=== PATIENT | female | born 1970 | race Hispanic/Latino ===

== ENCOUNTER 2016-10-22 21:28 | Emergency (ER) | payer OTHER ==
[~2016-10-22] VITALS: Ht 157.5 cm; Wt 68.9 kg
--- NOTE | 2016-10-22 21:42 | ED GI/GU/ABDOMINAL COMPLAINT ---
History of Present Illness General Chief Complaint: Abdominal Pain/Flank Pain Stated Complaint: R PELVIC PAIN PER PT Source: patient Exam Limitations: no limitations Vital Signs & Intake/Output Vital Signs & Intake/Output Vital Signs Date Time Temp Pulse Resp B/P Pulse O2 O2 Flow FiO2 Ox Delivery Rate 10/224 98.7 85 18 149/87 99 Room Air ED Intake and Output 10/23 0000 10/22 1200 Intake Total 0 Output Total Balance 0 Intake, Oral 0 Patient 152 lb Weight Allergies Coded Allergies: No Known Allergies (10/22/16) Triage Note: PT TO TRIAGE WITH C/O RLQ ABD PAIN ON/OFF FOR 2 WEEKS. US WAS DONE AT THAT TIME THAT SHOW SMALL OVARIAN CYST, PT HAS BEEN ON NAPROXEN SINCE. PT DENIES N/V/D, DENIES URINARY S/S. MD CAROLIN IN TRIAGE FOR PT EVAL. Triage Nurses Notes Reviewed? yes ? n Is pt currently ? No Onset: Gradual Duration: week(s):, waxing and waning Timing: recent history Quality/Severity: cramping Location: right lower quadrant Radiation: no radiation Activities at Onset: none Prior Abdominal Problems: similar symptoms Modifying Factors: Worsens With: palpation. Associated Symptoms: abdominal pain, right lower quadrant tenderness HPI: 46 yo woman with right lower quadrant pain x 2 weeks. She was seen by her clothes model 2 weeks ago, had a negative ultrasound, negative clothes model exam, and presents with continued pain, mild nausea. She has no fever, chills, dysuria, vaginal discharge. She is otherwise well. Past History Travel History Traveled to [place] past 21 day No Medical History Any Pertinent Medical History? see below for history Surgical History Surgical History: uterine ablation Psychosocial History What is your primary language [place] Tobacco Use: Never used ETOH Use: denies use Family History Hx Contributory? No Review of Systems Review of Systems Constitutional: Reports: no symptoms. EENTM: Reports: no symptoms. Respiratory: Reports: no symptoms. Cardiovascular: Reports: no symptoms. GI: Reports: no symptoms. Genitourinary: Reports: no symptoms. Musculoskeletal: Reports: no symptoms. Skin: Reports: no symptoms. Neurological/Psychological: Reports: no symptoms. Hematologic/Endocrine: Reports: no symptoms. Immunologic/Allergic: Reports: no symptoms. All Other Systems: Reviewed and Negative Physical Exam Physical Exam General Appearance: well developed/nourished, no apparent distress Head: atraumatic, normal appearance Eyes: Bilateral: normal appearance. Ears, Nose, Throat, Mouth: hearing grossly normal Neck: normal inspection, supple, full range of motion Respiratory: normal breath sounds, chest non-tender, no respiratory distress Cardiovascular: regular rate/rhythm Gastrointestinal: normal bowel sounds, soft, mild rlq tenderness to palpation. no rebound. no guarding Back: normal inspection Extremities: normal range of motion Neurologic/Psych: no motor/sensory deficits, awake, alert, oriented x 3 Skin: intact, normal color, warm/dry Core Measures ACS in differential dx? No Severe Sepsis Present: No Septic Shock Present: No Progress Differential Diagnosis: appendicitis, biliary colic, bowel obstruction, cholecystitis, diverticulitis Plan of Care: Orders Procedure Date/time Status URINALYSIS 10/22 2130 Complete LIPASE 10/22 2130 Complete HEPATIC FUNCTION PANEL 10/22 2130 Complete HUMAN BETA HCG SCREEN 10/22 2130 Complete CBC WITHOUT DIFFERENTIAL 10/22 2130 Complete BASIC METABOLIC PANEL 10/22 2130 Complete AMYLASE 10/22 2130 Complete Current Medications Sig/Manda Start time Last Medication Dose Stop Time Status Admin Ondansetron HCl 4 MG ONCE ONE 10/22 2144 CAN (Zofran) 10/22 2145 Laboratory Tests 10/22/168: Urinalysis MOD H, Urine Color YEL, Urine Clarity CLEAR, Urine pH 7.0, Ur Specific [place] 1.020, Urine Protein NEG, Urine Ketones NEG, Urine Nitrite NEG, Urine Bilirubin NEG, Urine Urobilinogen 0.2, Ur Leukocyte Esterase TRACE H, Ur Microscopic SEDIMENT EXAMINED, Urine RBC 1-3, Urine WBC 5-10 H, Ur Epithelial Cells MOD H, Urine Mucus FEW, Urine Hemoglobin NEG, Urine Glucose NEG 10/22/16 2217: Anion Gap 13, Estimated GFR > 60, BUN/Creatinine Ratio 16.7, Glucose 85, Calcium 9.6, Total Bilirubin 0.4, Direct Bilirubin 0.4, AST 20, ALT 14, Alkaline Phosphatase 67, Total Protein 7.7, Albumin 4.2, Amylase 56, Lipase 97, Total Beta HCG NEGATIVE, CBC w Diff NO MAN DIFF REQ, RBC 4.53, MCV 85.2, MCH 28.8, RDW 13.2, MPV 7.8, Gran % 63.8, Lymphocytes % 27.6, Monocytes % 6.8, Eosinophils % 1.3, Basophils % 0.5, Absolute Granulocytes 6.9 H, Absolute Lymphocytes 3.0, Absolute Monocytes 0.7 H, Absolute Eosinophils 0.1, Absolute Basophils 0.1, PUBS MCHC 33.8 Diagnostic Imaging: Viewed by Me: CT Scan. Discussed w/RAD: CT Scan. Radiology Impression: abd/pelvic... consider right ovarian cyst... full report below Initial ED EKG: none Comments: PATIENT: DWIGHT ENCISO PRESENT AGE: 46 PATIENT ACCOUNT NO: [id number] : 70 LOCATION: ER ORDERING PHYSICIAN: SHARON COE MD SERVICE DATE: 10/22/16 EXAM TYPE: CAT - CT ABD & PELVIS W/O IV CONTRAS EXAMINATION: CT ABDOMEN AND PELVIS WITHOUT CONTRAST CLINICAL INFORMATION: Right lower quadrant pain. Question appendicitis. COMPARISON: None. TECHNIQUE: Multidetector volumetric imaging was performed from the superior aspect of the liver through the pubic symphysis. Sagittal and coronal reformatted images were obtained on the technologist's workstation. DLP: 271 mGy-cm. FINDINGS: LUNG BASES: The visualized lung bases are unremarkable. LIVER, GALLBLADDER, AND BILIARY TREE: The liver is normal in size, shape, and attenuation. No focal hepatic lesion or biliary ductal dilatation is present. The gallbladder is unremarkable with no evidence of radiopaque gallstones, gallbladder wall thickening, or obvious pericholecystic inflammatory changes. PANCREAS: Unremarkable. SPLEEN: Unremarkable. ADRENAL GLANDS: Unremarkable. KIDNEYS AND URETERS: The kidneys are normal in size, shape, and attenuation. No hydronephrosis, hydroureter, or calculi seen. No perinephric stranding. BLADDER: Unremarkable. GASTROINTESTINAL TRACT: The stomach and small bowel appear unremarkable. No dilated loops of bowel or evidence of obstruction. There is a normal appendix. No colonic wall thickening or inflammatory change. No free air or free fluid. ABDOMINAL WALL: No significant hernia is appreciated. LYMPH NODES: Normal. VASCULAR: Unremarkable. PELVIC VISCERA: The uterus and left adnexa appear unremarkable. The right ovary appears prominent and somewhat hypoattenuating, most suggestive of a cyst. OSSEOUS STRUCTURES: Unremarkable. IMPRESSION: 1. Normal appendix. 2. Prominence of the right ovary which is somewhat hypoattenuating, most suggestive of a cyst. If there is concern for ovarian pathology, consider sonographic evaluation. DICTATED BY: ARLYN VALENCIA MD DATE/TIME DICTATED:10/22/162328 CHEMICAL PROCESS PROJECT ENGINEER:ALONSO DATE/TIME TRANSCRIBED:10/22/162328 CONFIDENTIAL, DO NOT COPY WITHOUT APPROPRIATE AUTHORIZATION. <Electronically signed in Other Vendor System> SIGNED BY: ARLYN VALENCIA MD 10/22 1586 Departure Departure Disposition: HOME OR SELF CARE Condition: Stable Clinical Impression Primary Impression: Abdominal pain Secondary Impressions: Ovarian cyst Departure Forms: Customer Survey General Discharge Information Comments pt has had two pelvic ultrasounds in recent weeks which suggest ovarian cyst, no torsion.... ct scan tonight affirms ovarian cyst. labs benign... pt safe for discharge with follow up by dr. mercedes tomorrow.
[2016-10-22 22:30] LABS: ABSOLUTE BASOPHIL COUNT 0.1 /CUMM (0.0-0.2); ABSOLUTE EOSINOPHIL COUNT 0.1 /CUMM (0.0-0.7); ABSOLUTE GRANULOCYTE CT 6.9 /CUMM (1.4-6.5); ABSOLUTE MONOCYTE COUNT 0.7 /CUMM (0.10-0.60); BASOPHIL % 0.5 % (0.0-2.0); EOSINOPHIL % 1.3 % (0-5); GRANULOCYTE % 63.8 % (42.2-75.2); HEMATOCRIT 38.6 % (37-47); MEAN CORPUSCULAR HGB 28.8 PG (27.0-31.0); MEAN CORPUSCULAR HGB CONC 33.8 G/DL (33.0-37.0); MEAN CORPUSCULAR VOLUME 85.2 FL (81.0-99.0); MEAN PLATELET VOLUME 7.8 FL (7.4-10.4); PLATELET COUNT 322 /CUMM (130-400); RBC DISTRIBUTION WIDTH 13.2 % (11.5-14.5); RED BLOOD CELL CT 4.53 /CUMM (4.20-5.40); WHITE BLOOD CELL COUNT 10.8 /CUMM (4.8-10.8)
--- NOTE | 2016-10-22 23:35 | CT SCAN REPORT ---
EXAMINATION: CT ABDOMEN AND PELVIS WITHOUT CONTRAST CLINICAL INFORMATION: Right lower quadrant pain. Question appendicitis. COMPARISON: None. TECHNIQUE: Multidetector volumetric imaging was performed from the superior aspect of the liver through the pubic symphysis. Sagittal and coronal reformatted images were obtained on the technologist's workstation. DLP: 271 mGy-cm. FINDINGS: LUNG BASES: The visualized lung bases are unremarkable. LIVER, GALLBLADDER, AND BILIARY TREE: The liver is normal in size, shape, and attenuation. No focal hepatic lesion or biliary ductal dilatation is present. The gallbladder is unremarkable with no evidence of radiopaque gallstones, gallbladder wall thickening, or obvious pericholecystic inflammatory changes. PANCREAS: Unremarkable. SPLEEN: Unremarkable. ADRENAL GLANDS: Unremarkable. KIDNEYS AND URETERS: The kidneys are normal in size, shape, and attenuation. No hydronephrosis, hydroureter, or calculi seen. No perinephric stranding. BLADDER: Unremarkable. GASTROINTESTINAL TRACT: The stomach and small bowel appear unremarkable. No dilated loops of bowel or evidence of obstruction. There is a normal appendix. No colonic wall thickening or inflammatory change. No free air or free fluid. ABDOMINAL WALL: No significant hernia is appreciated. LYMPH NODES: Normal. VASCULAR: Unremarkable. PELVIC VISCERA: The uterus and left adnexa appear unremarkable. The right ovary appears prominent and somewhat hypoattenuating, most suggestive of a cyst. OSSEOUS STRUCTURES: Unremarkable. IMPRESSION: 1. Normal appendix. 2. Prominence of the right ovary which is somewhat hypoattenuating, most suggestive of a cyst. If there is concern for ovarian pathology, consider sonographic evaluation.
[2016-10-23] MEDS ORDERED: IBUPROFEN800 M1 PO (00:10)
[2016-10-23] MEDS ORDERED: ULTRAM50 M1 PO (00:10)
[2016-10-23 00:21] VITALS: BP 138/88
== END 2016-10-23 00:23 ==
LOC: ERH 21:28
PROVIDERS: Pediatrics
DX: N83.201 Unspecified ovarian cyst, right side (principal)
CPT/HCPCS: 74176; 81001; 96374; J1885; J3101